=== PATIENT | female | born 1995 | race American Indian/Alaskan Native ===

== ENCOUNTER 2018-03-24 16:25 | Emergency (ER) | payer MEDICAID ==
[2018-03-24 16:27] VITALS: BMI 18.2
[2018-03-24 16:41] VITALS: BP 92/61; PULSE 86; RESP 20; TEMP 98.2; O2SAT 98
--- NOTE | 2018-03-24 17:16 | C.PDOC ---
History Of Present Illness 22 y/o female pt presents to the ER c/o left ear pain x3 days. Associated sx includes sore throat, generalized weakness and feeling hot. Pt denies fever, chills, chest pain, dizziness and lightheadedness. Time Seen by Provider: 03/24/18 16:57 Chief Complaint (Nursing): ENT Problem History Per: Patient History/Exam Limitations: no limitations Onset/Duration Of Symptoms: Days (x3) Current Symptoms Are (Timing): Still Present Past Medical History Reviewed: Historical Data, Nursing Documentation, Vital Signs Vital Signs: Last Vital Signs Temp 98.2 F 03/24/18 16:37 Pulse 86 03/24/18 16:37 Resp 20 03/24/18 16:37 BP 92/61 L 03/24/18 16:37 Pulse Ox 98 03/24/18 16:37 Family History: States: No Known Family Hx - Social History Hx Alcohol Use: No Hx Substance Use: No - Immunization History Hx Tetanus Toxoid Vaccination: No Hx Influenza Vaccination: No Hx Pneumococcal Vaccination: No Review Of Systems Constitutional: Positive for: Other (feeling hot ). Negative for: Fever, Chills ENT: Positive for: Throat Pain Cardiovascular: Negative for: Chest Pain, Light Headedness Neurological: Positive for: Weakness (generalized ). Negative for: Dizziness Physical Exam - Physical Exam Appears: Non-toxic, No Acute Distress Skin: Warm, Dry, No Rash Head: Atraumatic, Normacephalic Eye(s): bilateral: Normal Inspection Ear(s): Left: Other (erythema in canal ), Right: Normal Nose: No Discharge Oral Mucosa: Moist Throat: Erythema, No Exudate Neck: Normal ROM, Supple Lymphatic: Other (enlarged right tender submandibular node ) Cardiovascular: Rhythm Regular Respiratory: Normal Breath Sounds, No Rales, No Rhonchi, No Wheezing Neurological/Psych: Oriented x3, Normal Speech, Normal Cognition ED Course And Treatment O2 Sat by Pulse Oximetry: 98 (RA) Pulse Ox Interpretation: Normal Medical Decision Making Medical Decision Making: Impression: pharyngitis Plans: -- tylenol will treat for pharyngitis with amox, f/u clinic Disposition Counseled Patient/Family Regarding: Diagnosis, Need For Followup, Rx Given - Disposition Referrals: [facility] [Outside] Disposition: HOME/ ROUTINE Disposition Time: 17:32 Condition: GOOD Additional Instructions: Gargle with warm salty water. Take antibiotics until completed. Tylenol for [place] or fever. Follow up in medical clinic net week and follow up with grain commodity manager as scheduled on 04/01. medications sent to [facility] Prescriptions: Acetaminophen [Tylenol 325mg tab] 650 mg PO Q6 #30 tab Amoxicillin [Amoxil 500 mg Cap] 500 mg PO BID #20 cap Instructions: Sore Throat, Adult (DC), Outer Ear Infection (DC) Forms: [employer] (Yakut), Work Excuse - Clinical Impression Clinical Impression: Pharyngitis, Otitis externa - PA / STITCHER HAND / Resident Statement / has reviewed & agrees with the documentation as recorded. - Scribe Statement The provider has reviewed the documentation as recorded by the Rob Jimenez Do All medical record entries made by the Roscoeibsteph were at my direction and personally dictated by me. I have reviewed the chart and agree that the record accurately reflects my personal performance of the history, physical exam, medical decision making, and the department course for this patient. I have also personally directed, reviewed, and agree with the discharge instructions and disposition.
== END 2018-03-24 18:02 | disposition home or self-care (01) ==
LOC: C.ER 16:25
DX: J02.9 Acute pharyngitis, unspecified (principal); H60.92 Unspecified otitis externa, left ear

== ENCOUNTER 2018-04-12 02:01 | Emergency (ER) | payer MEDICAID ==
[2018-04-12 02:01] VITALS: BMI 18.2
[2018-04-12 02:14] VITALS: PULSE 102
--- NOTE | 2018-04-12 03:17 | C.PDOC ---
History Of Present Illness 22 year old female presents to the ED for evaluation of fever, cough, headache, sore throat, ear pain and generalized body aches which began two days ago. Patient took at Tylenol at 1700 without relief. She denies nausea, vomiting, diarrhea. Time Seen by Provider: 04/12/18 02:08 Chief Complaint (Nursing): Cough, Cold, Congestion History Per: Patient History/Exam Limitations: no limitations Onset/Duration Of Symptoms: Days (2) Current Symptoms Are (Timing): Still Present Associated Symptoms: Fever, Sore Throat, Cough. denies: Nausea, Vomiting, Diarrhea Ear Symptoms: Bilateral: Ear Pain Additional History Per: Patient Past Medical History Reviewed: Historical Data, Nursing Documentation, Vital Signs Vital Signs: Last Vital Signs Temp 102 F H 04/12/18 02:21 Pulse 102 H 04/12/18 02:09 Resp 22 04/12/18 02:09 BP 94/58 L 04/12/18 02:09 Pulse Ox 96 04/12/18 02:09 - Medical History PMH: No Chronic Diseases Surgical History: No Surg Hx Family History: States: Unknown Family Hx - Social History Hx Alcohol Use: No Hx Substance Use: No - Immunization History Hx Tetanus Toxoid Vaccination: No Hx Influenza Vaccination: No Hx Pneumococcal Vaccination: No Review Of Systems Constitutional: Positive for: Fever ENT: Positive for: Ear Pain, Throat Pain Gastrointestinal: Negative for: Nausea, Vomiting, Diarrhea Musculoskeletal: Positive for: Other (generalized body aches ) Neurological: Positive for: Headache Physical Exam - Physical Exam Appears: Non-toxic, No Acute Distress, Other (uncomfortable ) Skin: Normal Color, Warm, Dry Head: Atraumatic, Normacephalic Eye(s): bilateral: Normal Inspection Ear(s): Bilateral: Normal Nose: Normal, No Discharge Oral Mucosa: Moist Throat: Normal, No Erythema, No Exudate Neck: Supple Chest: Symmetrical, No Deformity, No Tenderness Cardiovascular: Rhythm Regular, No Murmur Respiratory: Normal Breath Sounds, No Rales, No Rhonchi, No Wheezing Extremity: Normal ROM, Capillary Refill (less than 2 seconds ) Neurological/Psych: Oriented x3, Normal Speech, Normal Cognition ED Course And Treatment O2 Sat by Pulse Oximetry: 96 (on RA) Pulse Ox Interpretation: Normal Medical Decision Making Medical Decision Making: Progress: Tylenol and Tamiflu PO given. On reassessment, patient is resting comfortably, showing no signs of distress and reports an improvement in her headache after receiving Tylenol. Patient is stable for discharge with Rx for Tamiflu and Tylenol. She is advised to follow up with her PMD within 1-2 days for further evaluation. Disposition Counseled Patient/Family Regarding: Studies Performed, Diagnosis, Need For Followup, Rx Given - Disposition Referrals: [facility] [Outside] Disposition: HOME/ ROUTINE Disposition Time: 03:58 Condition: IMPROVED Additional Instructions: Drink lots of fluids. Take Tylenol every 6 hours for fever or pain. Finish Tamiflu. Follow up with medical clinic in a few days or your doctor. Bed rest. Prescriptions: Acetaminophen [Tylenol 325mg tab] 650 mg PO Q6 #30 tab Oseltamivir Phosphate [Tamiflu] 75 mg PO BID #10 capsule Instructions: Influenza (ED) Forms: [employer] ([place]) - Clinical Impression Clinical Impression: Influenza-like illness - PA / LIVING MANAGER / Resident Statement MD/DO has reviewed & agrees with the documentation as recorded. - Scribe Statement The provider has reviewed the documentation as recorded by the Scribe (Dee Dee Amaro) All medical record entries made by the Scribe were at my direction and personally dictated by me. I have reviewed the chart and agree that the record accurately reflects my personal performance of the history, physical exam, medical decision making, and the department course for this patient. I have also personally directed, reviewed, and agree with the discharge instructions and disposition.
[2018-04-12 03:33] VITALS: BP 95/58; RESP 16; TEMP 98.6
[2018-04-12 04:00] VITALS: O2SAT 96
== END 2018-04-12 04:09 | disposition home or self-care (01) ==
LOC: C.ER 02:01
DX: J11.1 Influenza due to unidentified influenza virus with other respiratory manifestations (principal)

== ENCOUNTER 2018-05-06 00:12 | Emergency (ER) | payer SELFPAY ==
[2018-05-06 00:12] VITALS: BMI 18.2
[2018-05-06 01:19] LABS: SQUAMOUS EPITHIAL 1 /hpf (0-5); URINE BILIRUBIN NEGATIVE (NEGATIVE); URINE BLOOD NEGATIVE (NEGATIVE); URINE CLARITY Clear (Clear); URINE COLOR Yellow (YELLOW); URINE GLUCOSE (UA) NORMAL (Normal); URINE LEUKOCYTE ESTERASE NEG Leu/uL (Negative); URINE PROTEIN NEGATIVE (NEGATIVE)
[2018-05-06 01:20] LABS: HCG,QUALITATIVE URINE NEGATIVE (NEGATIVE)
--- NOTE | 2018-05-06 01:35 | C.PDOC ---
History Of Present Illness 22 year old female presents to the emergency department with complaints of crampy abdominal discomfort and body aches for a week, with loose stools today. Patient denies sick contact at home. Patient also complains of small pustules to the buttock area. She states that she has been soaking in epsom salts, and that she takes occasional Tylenol for her body aches. Time Seen by Provider: 05/06/18 01:01 Chief Complaint (Nursing): Abdominal Pain History Per: Patient History/Exam Limitations: no limitations Onset/Duration Of Symptoms: Days (1 day of loose stools), Other (abdominal pain and body aches for one week. ) Location Of Pain/Discomfort: Diffuse Quality Of Discomfort: Cramping, "Pain" Associated Symptoms: Diarrhea, Other (body aches) Past Medical History Reviewed: Historical Data, Nursing Documentation, Vital Signs Vital Signs: Last Vital Signs Temp 98.4 F 05/06/18 00:22 Pulse 76 05/06/18 00:22 Resp 14 05/06/18 00:22 BP 98/63 L 05/06/18 00:22 Pulse Ox 98 05/06/18 00:22 - Medical History PMH: No Chronic Diseases Surgical History: No Surg Hx Family History: States: No Known Family Hx - Social History Hx Alcohol Use: No Hx Substance Use: No - Immunization History Hx Tetanus Toxoid Vaccination: No Hx Influenza Vaccination: No Hx Pneumococcal Vaccination: No Review Of Systems Except As Marked, All Systems Reviewed And Found Negative. Gastrointestinal: Positive for: Abdominal Pain, Diarrhea Musculoskeletal: Positive for: Other (body aches) Skin: Positive for: Other (pustules) Physical Exam - Physical Exam Appears: Non-toxic, No Acute Distress Skin: Normal Color, Warm, Dry, Other (minor folliculitis in medial buttocks area ) Head: Atraumatic, Normacephalic Eye(s): bilateral: Normal Inspection, PERRL, EOMI Nose: Normal Oral Mucosa: Moist Neck: Normal, Supple Chest: Symmetrical, No Tenderness Cardiovascular: Rhythm Regular, No Murmur Respiratory: Normal Breath Sounds, No Rales, No Rhonchi, No Wheezing Gastrointestinal/Abdominal: Soft, No Tenderness, No Guarding, No Rebound ED Course And Treatment - Laboratory Results Lab Results: Urine Color Yellow (YELLOW) 05/06/18 01:14 Urine Clarity Clear (Clear) 05/06/18 01:14 Urine pH 6.0 (5.0-8.0) 05/06/18 01:14 Ur Specific Griffin 1.015 (1.003-1.030) 05/06/18 01:14 Urine Protein Negative mg/dL (NEGATIVE) 05/06/18 01:14 Urine Glucose (UA) Normal mg/dL (Normal) 05/06/18 01:14 Urine Ketones Negative mg/dL (NEGATIVE) 05/06/18 01:14 Urine Blood Negative (NEGATIVE) 05/06/18 01:14 Urine Nitrate Negative (NEGATIVE) 05/06/18 01:14 Urine Bilirubin Negative (NEGATIVE) 05/06/18 01:14 Urine Urobilinogen 2.0 mg/dL (0.2-1.0) H 05/06/18 01:14 Ur Leukocyte Esterase Neg Jahaira/uL (Negative) 05/06/18 01:14 Urine WBC (Auto) 1 /hpf (0-5) 05/06/18 01:14 Ur Squamous Epith Cells 1 /hpf (0-5) 05/06/18 01:14 Urine HCG, Qual Negative (NEGATIVE) 05/06/18 01:14 Urine HCG, Qual Negative (NEGATIVE) 05/06/18 01:14 O2 Sat by Pulse Oximetry: 98 (RA) Pulse Ox Interpretation: Normal Medical Decision Making Medical Decision Making: mild diarrhea normal exam ? small folliculitis recently in merced-perenial area, none now neg preg Disposition Doctor Will See Patient In The: Office Counseled Patient/Family Regarding: Studies Performed, Diagnosis - Disposition Referrals: [facility] [Outside] [facility] [place] [Outside] [facility] [Outside] [facility] [Outside] Disposition: HOME/ ROUTINE Disposition Time: 01:34 Condition: GOOD Additional Instructions: continue BRAT diet for diarrhea- probably viral related Bananas, white rice, apples, toast Drink plenty of fluids- Water, Gatorade Motrin 400 mg every 6 hours as needed Urinlaysis and tests are NEGATIVE Instructions: Viral Gastroenteritis, Viral Syndrome (DC), Folliculitis Forms: [employer] (Australian) - Clinical Impression Clinical Impression: Abdominal pain, colicky - Scribe Statement The provider has reviewed the documentation as recorded by the Scribe (Calvin Mariela) Provider Attestation: All medical record entries made by the Scribe were at my direction and personally dictated by me. I have reviewed the chart and agree that the record accurately reflects my personal performance of the history, physical exam, medical decision making, and the department course for this patient. I have also personally directed, reviewed, and agree with the discharge instructions and disposition.
[2018-05-06 01:44] VITALS: BP 101/71; PULSE 79; RESP 18; TEMP 98
[2018-05-06 02:06] VITALS: O2SAT 98
== END 2018-05-06 01:44 | disposition home or self-care (01) ==
LOC: C.ER 00:12
DX: R10.84 Generalized abdominal pain (principal)